=== PATIENT | male | born 1935 | race Caucasian/White ===

== ENCOUNTER 2017-07-14 18:42 | Inpatient (IN) | payer OTHER, MEDICARE ==
[~2017-07-14] VITALS: Ht 167.6 cm; Wt 82.1 kg
--- NOTE | ~2017-07-14 | HC ---
[facility] [place] [address] CONSULTATION Name: MELANIA MANZO Room #: 444-P ADM IN M.R.#: [id number] Admission: 07/14/17 Attend Phys: Uche Garrison Discharge: Date of : 37 Report #: [id number] THIS REPORT FOR: //name// CC: Uche Melchor DATE OF SERVICE: 07/16/2017 HISTORY OF PRESENT ILLNESS: The patient is a 81-year-old male with history of prior CVA with right-sided hemiparetic deficit, who was admitted with increased confusion, slurred speech. He was diagnosed with sepsis, noted to have urinary tract infection, acute renal insufficiency. He is noted to have metabolic encephalopathy. He has acute renal insufficiency superimposed on chronic kidney disease. MRI of the brain showed no acute issues. He does have premorbid Parkinson's disease. He has had a significant decline in his functional level and we are seeing him in rehabilitation medicine consultation. PAST MEDICAL HISTORY: Includes prior CVA with residual right-sided hemiparesis. He was on some thickened liquids at home with his family. He has a history of vertebroplasty in the past, hypertension, cataract, shoulder repair, high cholesterol. ALLERGIES: No known drug allergies. MEDICATIONS: Please see the full medication listing. HABITS: Former tobacco smoker, quit 10 years ago, former history of alcohol use daily, beer intake, quitting 5 years ago. SOCIAL HISTORY: Lives in a house with his . Used a 4-wheeled walker with assist of his and daughter. There is one step in. He did need some help with dressing. REVIEW OF SYSTEMS: Did not offer any current complaints of chest pain, shortness of breath or abdominal discomfort. He does have the prior history of some back pain and has had the recent vertebroplasty as noted above. PHYSICAL EXAMINATION: GENERAL: The patient is a sleepy 81-year-old white male, who easily arouses. Facies revealed some evidence of masked facies. He is a rather slender built. VITAL SIGNS: His temperature is 97.5, pulse 77, respirations 20, blood pressure 145/79. NEUROLOGIC: Functional range of motion of the left upper and left lower extremity with strength, probably a grade 3+ to 4-. He does have some cogwheeling of elbows and wrist on the left. Right upper extremity reveals some paresis, probably a grade 3+ with slowly movement, some rigidity and some [facility] [address] [place] [address] CONSULTATION Name: MELANIA MANZO Room #: 444-P ADM IN ..#: [id number] Admission: 07/14/17 Attend Phys: Uche Garrison Discharge: Date of : 37 Report #: [id number] cogwheeling of wrist and elbow. Lower extremity reveals some weakness as well with paresis, probably a grade 3+. He was quite slowly. He has limited verbalizations. There was no clonus at the ankles. He is mini assist with sit to stand and did ambulate 15 feet, mild assist with a front-wheeled walker. ASSESSMENT: A 81-year-old white male with the following problem list: 1. Late effect cerebrovascular accident with worsening right hemiparesis and dysphagia. 2. Dysphagia, warranting pureed with honey-thickened liquids. 3. Metabolic encephalopathy. 4. Parkinson's disease. 5. Sepsis. 6. Acute renal insufficiency. 7. Hypertension. 8. T4 vertebral fracture, status post kyphoplasty. 9. Hyperlipidemia. PLAN: We are assessing the patient regarding a possible acute in-hospital inpatient rehabilitation stay. We will see how his tolerance for therapy is. We will be glad to follow along with you regarding his rehab therapy needs. By: [id number] Satya Haider MD /OSMAN
--- NOTE | ~2017-07-14 | EKG ---
[address] [address] ELECTROCARDIOGRAM REPORT Name: MELANIA MANZO Room #: 444-P ADM IN .R.#: [id number] Admission: 07/14/17 Attend Phys: Terry Holder DO Discharge: Date of : 37 Report #: [id number] THIS REPORT FOR: //name// [facility] ED Test Date: 2017-07-14 Test Time: 18:53:22 Pat Name: MELANIA ZHENGMIKE Department: Room: [facility] Gender: M Medical Device Assembler: MZOOK : 1935 Requested By: Audrey Harris Order Number: [id number] MD: Christiano Singer Measurements Intervals [place] Rate: 110 P: 48 WV: 154 QRS: 27 QRSD: 77 T: 50 QT: 323 QTc: 438 Interpretive Statements Sinus tachycardia Baseline wander in lead(s) V3 Compared to ECG 03/27/2016 12:18:55 Sinus rhythm no longer present Electronically Signed On 07-14-2017 22:40:04 MARINE DRILLER by Christiano Singer [email or web address] <ELECTRONICALLY SIGNED> By: Christiano Singer MD 07/14/17 2240 [id number] Christiano Singer MD /EPI
[~2017-07-14 18:42] MED LIST: ASPIRIN325; ATORVASTATIN CA40 MG PO; LISINOPRIL2.5 MG PO; PRAVASTATIN SOD10 MG; VICODIN 5-5001 EACH PO
[2017-07-14 18:43] VITALS: BP 173/96
[2017-07-14 18:57] LABS: ABSOLUTE NEUTROPHILS 8.7 thou/uL (1.4-8.2); BASOPHILS 0.6 % (0.0-2.0); EOSINOPHILS 0.1 % (0.0-3.0); HEMATOCRIT 40.5 % (42.0-52.0); HEMOGLOBIN 13.4 gm/dL (14.0-18.0); LYMPHOCYTES 9.3 % (24.0-44.0); MCH 29.2 pg (26.0-34.0); MCHC 33.2 g/dL (28.0-37.0); PLATELET COUNT 291 thou/uL (150-400); RDW 14.3 % (10.5-14.5); WBC 11.2 thou/uL (4.0-11.0)
[2017-07-14 18:58] LABS: MANUAL DIFF NO
[2017-07-14] MEDS ORDERED: TROSPIUM CHLORI20 MG PO (19:09)
[2017-07-14 19:20] LABS: URINE BILIRUBIN NEGATIVE (Negative); URINE BLOOD 3+ (Negative); URINE COLOR YELLOW; URINE GLUCOSE-RANDOM* NEGATIVE (Negative); URINE KETONES NEGATIVE (Negative); URINE PROTEIN (DIPSTICK) 2+ (Negative); URINE UROBILINOGEN 0.2 E.U./dl (0.2-1.0)
[2017-07-14 19:21] LABS: URINE LEUKOCYTES-REFLEX 3+ (Negative)
[2017-07-14 19:22] LABS: CASTS None Seen /LPF (None Seen); SQUAMOUS >10 Many /LPF (0-3); URINE WBC-REFLEX >25 Many /HPF (0-5)
[2017-07-14 19:23] LABS: CRYSTALS None Seen /LPF (None Seen); URINE RBC >20 Many /HPF (0-2)
[2017-07-14 19:53] VITALS: BP 173/96
[2017-07-14 20:05] VITALS: BP 125/72
[2017-07-15] VITALS (7 sets, daily range): BP systolic 129–155; BP diastolic 75–96
[2017-07-15 04:07] LABS: CALCIUM 9.2 mg/dL (8.5-10.1); CREATININE 2.5 mg/dL (0.7-1.3); POTASSIUM 3.7 mmol/L (3.5-5.1)
[2017-07-15 04:40] LABS: HEMATOCRIT 35.2 % (42.0-52.0); HEMOGLOBIN 11.8 gm/dL (14.0-18.0); MCH 29.6 pg (26.0-34.0); MCHC 33.4 g/dL (28.0-37.0); MCV 88.6 fL (80.0-100.0); RBC 3.98 mil/uL (4.50-6.00); RDW 14.1 % (10.5-14.5); WBC 9.5 thou/uL (4.0-11.0)
[2017-07-15 09:09] LABS: GLYCOHEMOGLOBIN (HGB A1C) 6.2 % (4.8-5.6)
[2017-07-15 09:50] LABS: CHOLESTEROL 93 mg/dL (<200); HDL CHOLESTEROL 38 mg/dL (>40); LDL CHOLESTEROL 46 mg/dL (<100); TC:HDL 2.4 Ratio (Not establshd); TRIGLYCERIDE 47 mg/dL (<150); VLDL 9 mg/dL (<40)
[2017-07-16 04:34] VITALS: BP 146/76
[2017-07-16 07:20] VITALS: BP 145/79
[2017-07-16 09:10] LABS: CALCIUM 9.3 mg/dL (8.5-10.1); CREATININE 1.8 mg/dL (0.7-1.3); POTASSIUM 3.7 mmol/L (3.5-5.1)
[2017-07-16 17:11] VITALS: BP 141/72
[2017-07-16 19:49] VITALS: BP 174/84
[2017-07-17 04:48] VITALS: BP 159/76
[2017-07-17 05:38] LABS: CREATININE 1.8 mg/dL (0.7-1.3); POTASSIUM 3.3 mmol/L (3.5-5.1)
[2017-07-17 08:00] VITALS: BP 162/83
[2017-07-17 10:22] VITALS: BP 162/83
[2017-07-17] MEDS ORDERED: HYDROCODON-ACE1 EAC7 PO (11:58)
[2017-07-17] MEDS ORDERED: KEFLEX500 M1 PO (12:00)
== END 2017-07-17 13:09 | disposition home health service (06) | DRG 871 ==
LOC: ER 18:42 → 4S 19:40 → EROBS 19:40 → 4S 20:10 → ENTRNSPT 07-17 12:59 → EDTRNSPTSTS 07-17 13:01 → 4S 07-17 13:09
PROVIDERS: Emergency Medicine; Hospitalist; Nurse Practitioner Acute Care
DX: A41.9 Sepsis, unspecified organism (principal); G93.41 Metabolic encephalopathy; N39.0 Urinary tract infection, site not specified; N17.9 Acute kidney failure, unspecified; I69.351 Hemiplegia and hemiparesis following cerebral infarction affecting right dominant side; E78.00 Pure hypercholesterolemia, unspecified; I10 Essential (primary) hypertension; R13.10 Dysphagia, unspecified; R73.9 Hyperglycemia, unspecified; R41.0 Disorientation, unspecified; G20 Parkinson's disease; Z87.81 Personal history of (healed) traumatic fracture; Z87.891 Personal history of nicotine dependence; Z98.42 Cataract extraction status, left eye; Z98.41 Cataract extraction status, right eye
CPT/HCPCS: 10100

== ENCOUNTER 2019-10-25 19:02 | Emergency (ER) | payer OTHER, MEDICARE ==
[~2019-10-25] VITALS: Ht 167.6 cm; Wt 72.6 kg
[~2019-10-25 19:02] MED LIST changes: +HYDROCODON-ACE1 EAC7 PO; +KEFLEX500 M1 PO; +TROSPIUM CHLORI20 MG PO
[2019-10-25 19:53] LABS: INR 2.8; PROTIME 28.6 Seconds (9.3-11.4)
[2019-10-25] MEDS ORDERED: COUMADIN 2.5MG2.5 M1 PO (20:10)
[2019-10-25] MEDS ORDERED: COUMADIN 2 MG TA2 M1 PO (20:11)
[2019-10-25] MEDS ORDERED: COUMADIN 1MG TAB1 M1 PO (20:12)
[2019-10-25 20:40] VITALS: BP 129/72
== END 2019-10-25 21:09 ==
LOC: ER 19:02
PROVIDERS: Emergency Medicine Emergency Medical Services
DX: S01.01XA Laceration without foreign body of scalp, initial encounter (principal); I10 Essential (primary) hypertension; E78.00 Pure hypercholesterolemia, unspecified; Z86.73 Personal history of transient ischemic attack (TIA), and cerebral infarction without residual deficits; W18.39XA Other fall on same level, initial encounter; Y93.89 Activity, other specified; Y92.098 Other place in other non-institutional residence as the place of occurrence of the external cause; Y99.8 Other external cause status

== ENCOUNTER 2020-01-01 14:01 | Inpatient (IN) | payer OTHER, MEDICARE ==
[~2020-01-01] VITALS: Ht 172.7 cm; Wt 74.8 kg
[~2020-01-01 14:01] MED LIST changes: +COUMADIN 1MG TAB1 M1 PO; +COUMADIN 2 MG TA2 M1 PO; +COUMADIN 2.5MG2.5 M1 PO
[2020-01-01 14:03] VITALS: BP 121/86
[2020-01-01 14:53] LABS: ABSOLUTE NEUTROPHILS 10.5 thou/uL (1.4-8.2); BASOPHILS 0.2 % (0.0-2.0); EOSINOPHILS 0.3 % (0.0-3.0); HEMATOCRIT 41.1 % (42.0-52.0); HEMOGLOBIN 13.7 gm/dL (14.0-18.0); LYMPHOCYTES 10.4 % (24.0-44.0); MCH 30.3 pg (26.0-34.0); MCHC 33.2 g/dL (28.0-37.0); MCV 91.2 fL (80.0-100.0); MONOCYTES 8.8 % (1.0-8.0); POLYS 80.3 % (36.0-66.0); RBC 4.51 mil/uL (4.50-6.00); RDW 14.8 % (10.5-14.5); WBC 14.1 thou/uL (4.0-11.0)
[2020-01-01 15:12] LABS: ALBUMIN 3.3 g/dL (3.4-5.0); ANION GAP 12 mmol/L (7-16); BUN 18 mg/dL (7-18); CALCIUM 8.8 mg/dL (8.5-10.1); CHLORIDE 99 mmol/L (98-107); CO2 23 mmol/L (21-32); CREATININE 1.2 mg/dL (0.7-1.3); GLUCOSE 93 mg/dL (74-106); POTASSIUM 4.2 mmol/L (3.5-5.1); SGOT 34 U/L (15-37); SGPT 30 U/L (30-65); SODIUM 134 mmol/L (136-145); TOTAL BILIRUBIN 1.4 mg/dL (<0.1-1.0); TOTAL PROTEIN 7.4 g/dL (6.4-8.2); TROPONIN-I <0.06 ng/mL (<0.06)
[2020-01-01 15:21] LABS: PLATELET COUNT 162 thou/uL (150-400)
[2020-01-01 15:46] LABS: INR 2.5; PROTIME 25.2 Seconds (9.3-11.4)
[2020-01-01 16:49] LABS: URINE BILIRUBIN NEGATIVE (Negative); URINE BLOOD 3+ (Negative); URINE CLARITY SL CLOUDY; URINE COLOR YELLOW; URINE GLUCOSE-RANDOM* NEGATIVE (Negative); URINE KETONES 1+ (Negative); URINE NITRITE-REFLEX NEGATIVE (Negative); URINE PROTEIN (DIPSTICK) 1+ (Negative)
[2020-01-01 16:50] LABS: URINE LEUKOCYTES-REFLEX 3+ (Negative)
[2020-01-01 16:58] LABS: CASTS None Seen /LPF (None Seen); CRYSTALS None Seen /LPF (None Seen); SQUAMOUS None Seen /LPF (0-3); URINE RBC >20 Many /HPF (0-2)
[2020-01-01 16:59] LABS: BACTERIA-REFLEX 1-9 Few /HPF (None Seen)
[2020-01-01 19:03] VITALS: BP 134/72
[2020-01-01 20:15] VITALS: BP 154/73
[2020-01-01 20:56] VITALS: BP 134/80
[2020-01-02 00:33] VITALS: BP 138/61
--- NOTE | 2020-01-02 01:32 | NUR ---
RECEIVED REPORT FROM JOSE ED RN.PATIENT ARRIVED TO ROOM 352 AROUND 1999.PATIENT ALERT,NONVERBAL,ABLE TO GET HOLD OF HIS AND SHE WAS ABLE TO PROVIDE SOME INFORMATION.REPOSITIONED PATIENT Q2 HOURS AND NEEDED. SUPRAPUBIC CATH INTACT.NO SIGNS OF PAIN OR DISCOMFORT.POC CONTINUED.
[2020-01-02 04:15] VITALS: BP 115/47
[2020-01-02 06:16] LABS: HEMOGLOBIN 12.4 gm/dL (14.0-18.0); MCH 30.2 pg (26.0-34.0); MCHC 33.4 g/dL (28.0-37.0); MCV 90.5 fL (80.0-100.0); RBC 4.09 mil/uL (4.50-6.00); RDW 14.7 % (10.5-14.5); WBC 10.7 thou/uL (4.0-11.0)
[2020-01-02 06:24] LABS: CALCIUM 8.5 mg/dL (8.5-10.1); POTASSIUM 3.5 mmol/L (3.5-5.1)
[2020-01-02 06:28] LABS: INR 2.5; PROTIME 26.1 Seconds (9.3-11.4)
[2020-01-02 09:12] VITALS: BP 120/61
--- NOTE | 2020-01-02 12:03 | NUR ---
INITIAL ASSESSMENT: Reviewed chart and spoke with nursing and attending physician. Pt in Enhanced Isolation. Pt's COVID-19 test is negative. Pt will be transferred from to another unit when a bed is available. Pt is nonverbal. ANDI spoke with pt's , Colette, via phone. Introduced role of ANDI. Pt requires total care at home. Pt has a w/c, hospital bed and lift chair at home. Pt's home and bathroom is handicapped accessible. Pt is currently on service with [facility] for monthly catheter care and INR checks. Pt's PCP is Dr. Damon Walter at [facility] on the [place]. Pt's states that plan is for pt to return home and resume services. ANDI faxed clinical info to Brittany for review and spoke with Avinash in intake. Pt's INR results will be forwarded to the [facility] protime clinic by Brittany . ANDI is following to assist as needed with discharge planning.
--- NOTE | 2020-01-02 12:43 | NUR ---
PT CARE ASSUMED AT 0700. AWAKE AND ALERT. BEDBOUND WITH HISTORY OF DEMENTIA. Q2 TURNS. DNR. SUPRAPUBIC CATHETER CLEANED AND CRUST AND PUSS REMOVED FROM SKIN AND SUROUNDING CATHETER AREA. MD NOTIFIED. PT COUGHES WHEN DRINKING WATER SPEECH EVALUATION ORDERED. NECTAR THICK FLUIDS GIVEN UNTIL EVALUATION TO PREVENT ASPIRATION. PT WILL RESPOND WITH SHORT ANSWERS WHEN SHORT DIRECT QUESTIONS ARE ASKED. PER ARIA ROD (INFECTION CONTROLL) AND DR. CLINTON PT IS OK TO BE TAKEN OFF OF ISOLATION AND TRANSFERRED TO A [facility] FLOOR. BOTTOM AN DBACK ARE RED BUT NOT OPEN. TOTAL BEDBATH AND ORAL CARE GIVEN. ON ROOM AIR. FALL PROTOCOLL IN PLACE. PT SCREEN POSITIVE ON THE SEPSIS PROTOCOL, DR. CLINTON INFORMED. IV PATENT WITH NO REDNESS OR EDEMA. FLUIDS AND ANTIBIOTICS INFUSING. WRAPPED WITH COBAN. CALL LIGHT IN REACH. WILL CONTINUE TO MONITOR.
[2020-01-02 19:25] VITALS: BP 137/62
[2020-01-02 19:30] VITALS: BP 137/62
--- NOTE | 2020-01-02 22:11 | NUR ---
PT WAS TRANSFERRED FROM AT APPROX 1999 IN A STABLE CONDITION.PT REPOSITIONED Q2 WHILE IN BED.PT'S NIC NOTIFIED OF PT'S MOVE,UPDATED HER WITH HIS NEW ROOM NUMBER.PT'S SUPRAPUBIC CATH INTACT WITH DARK YELLOW URINE NOTED IN THE BAG.PT RESTING ON HIS BED AT THIS TIME.FEET ELEVATED WITH A PILLOW.PT RESTING COMFORTABLY ON HIS BED AT THIS TIME.IVF INFUSING OREDERED.FALL PRECAUTIONS IN PLACE.CALL LIGHT WITHIN REACH.
--- NOTE | 2020-01-02 22:26 | NUR ---
PATIENT IS CONFUSED TO PLACE AND TRIME. NEEDS HELP IN FEEDING. SUPERPUBIC CATH CHANGE PRIOR TO TRANSFER TO 461. REPORT GIVEN TO HIS HS RN. ON ROOM AIR.INCONT OF BLADDER AND BOWEL. DENIES ANY PAIN. TRANSFERED OFF OF FLOOR PER BED. WAS BATHED TODAY.
[2020-01-03 04:33] VITALS: BP 146/56
[2020-01-03 05:39] LABS: HEMATOCRIT 34.7 % (42.0-52.0); HEMOGLOBIN 11.6 gm/dL (14.0-18.0); MCH 30.3 pg (26.0-34.0); MCHC 33.4 g/dL (28.0-37.0); MCV 90.6 fL (80.0-100.0); RBC 3.83 mil/uL (4.50-6.00); RDW 14.6 % (10.5-14.5); WBC 8.1 thou/uL (4.0-11.0)
[2020-01-03 05:42] LABS: INR 2.6; PROTIME 26.8 Seconds (9.3-11.4)
[2020-01-03 05:50] LABS: CALCIUM 8.3 mg/dL (8.5-10.1); CREATININE 1.1 mg/dL (0.7-1.3); POTASSIUM 3.5 mmol/L (3.5-5.1)
[2020-01-03 07:24] VITALS: BP 134/66
--- NOTE | 2020-01-03 07:56 | EKG ---
[facility] [place] [address] ELECTROCARDIOGRAM REPORT Name: MELANIA CANCINO Room #: 461-P ADM IN M.R.#: [id number] Admission: 01/01/20 Attend Phys: Jermain Aldrich MD Discharge: Date of : 37 Report #: [id number] THIS REPORT FOR: cc: FAM - Family physician unknown FAM - Family physician unknown Virgilio Hensley MD [facility] ~ THIS REPORT FOR: //name// [facility] ED Test Date: 2020-01-01 Test Time: 15:41:42 Pat Name: MELANIA CANCINO Department: Room: 46 Gender: M Button Buttonhole Marker: CHRIS : 1935 Requested By: Alexandre Mooney Order Number: [id number] MD: Virgilio Hensley Measurements Intervals [place] Rate: 87 P: 46 MT: 175 QRS: -9 QRSD: 95 T: 34 QT: 395 QTc: 476 Interpretive Statements Sinus rhythm Abnormal R-wave progression, early transition Borderline prolonged QT interval Baseline wander in lead(s) V1 Compared to ECG 07/14/2017 18:53:22 Sinus tachycardia no longer present Electronically Signed On 01-03-2020 7:54:52 CDT by Virgilio Hensley [email or web address] <ELECTRONICALLY SIGNED> By: Virgilio Hensley MD, FAC 01/03/20 0754 1541 1541 Virgilio Hensley MD, FAC /EPI
--- NOTE | 2020-01-03 09:42 | NUR ---
Nutrition: pt admitted with AMS, fever, UTI. PMH: dementia, CVA, HLD, HTN, Parkinsons. Confused. Notified of low roslyn score. Noted pt is bedbound but no wounds are documented. Mild to moderate [facility] Honey thick liquids diet followed by ST. Requires feeding assist and so far has been eating fairly well, 60-70% of meals. Magic cup ordered. Unsure of accuracy of weights. 160 and 180 both seen per hx. 165# current. Follow trends but place as low risk due to interventions in place.
--- NOTE | 2020-01-03 12:54 | NUR ---
Received awake on bed. Due medications given as prescribed, medications crushed and given with apple sauce as per ST. On room air. On heart healthy diet, mechanically chopped, honey thick fluids- pt assisted and encouraged in eating and drinking. Vital signs stable. In continent of bowel and bladder- with suprepubic catheter in place- output measured and recorded accordingly; pt checked frequently and changed as needed. With redness on his buttocks and back- turned frequently. Assisted in ADLs. Assessed by PT and OT today. With NS at 75cc/hr, infusing well at L FA. Falls bundle in place. To continue monitoring patient.
[2020-01-03 16:34] VITALS: BP 97/74
[2020-01-03 16:42] VITALS: BP 131/97
[2020-01-03 19:07] VITALS: BP 131/58
[2020-01-04 05:55] LABS: INR 2.8; PROTIME 28.9 Seconds (9.3-11.4)
[2020-01-04 06:03] LABS: CALCIUM 8.6 mg/dL (8.5-10.1); POTASSIUM 3.2 mmol/L (3.5-5.1)
[2020-01-04 06:04] LABS: HEMATOCRIT 36.7 % (42.0-52.0); HEMOGLOBIN 12.2 gm/dL (14.0-18.0); MCHC 33.1 g/dL (28.0-37.0); MCV 90.7 fL (80.0-100.0); RBC 4.05 mil/uL (4.50-6.00); RDW 14.5 % (10.5-14.5); WBC 6.1 thou/uL (4.0-11.0)
--- NOTE | 2020-01-04 06:18 | NUR ---
ASSUMED PT CARE AROUND 1900. AXOX1. VSS. AROUND 0500, NOTED PT'S REMOVED IV. REINSERTED AND PROTECTIVE WRAP APPLIED FOR SECURITY OF THE IV. TOLERATED PROCEDURE WELL. VSS. SUPRAPUBIC CATHETER INTACT. NO S/S ACUTE DISTRESS NOTED OR REPORTED AT THIS TIME. WILL CONT TO MONITOR FOR ANY CHANGES IN CONDITION.
[2020-01-04 09:00] VITALS: BP 107/60; BP 150/87
--- NOTE | 2020-01-04 14:17 | NUR ---
CARE TEAM INDICATED THAT PT MIGHT BE MEDICALLY STABLE TO DC HOME TOMORROW. CM CALLED AND SPOKE WITH PT'S AND WENT OVER HOW PT WAS DOING WITH PT AND THE LEVEL OF ASSIST PT WILL LIKELY NEED UPON DC. PT NOTES INDICATED USE OF LIFT DEVICE, PT'S INDICATED THEY DON'T HAVE A LIFY DEVICE FOR TRANSFERS THAT THEY HAVE A LIFT CHAIR/RECLINER FOR USE. SPOUSE STATED THAT SHE HAD ASSISTED [facility] PHYSICAL LIFT FROM SITTING TO STANDING. SHE INDICATED THAT FROM SOUND OF THERAPY NOTES SHE WOULD BE ABLE TO CARE FOR PT UPON HIS ANTICPATED RETURN HOME TOMORROW. SHE INDICATED SHE WOULD [facility] TRANSPORT ONCE READY. UPDATED SENT TO [facility].
--- NOTE | 2020-01-04 18:48 | NUR ---
ASSUMED CARE OF PT AT 0700. PT IS ALERT AND ORIENTED TO PERSON ONLY, VITAL SIGNS ARE STABLE.
[2020-01-04 20:18] VITALS: BP 167/76
[2020-01-05 03:59] VITALS: BP 128/69
[2020-01-05 06:28] LABS: HEMATOCRIT 37.1 % (42.0-52.0); HEMOGLOBIN 12.3 gm/dL (14.0-18.0); MCH 30.1 pg (26.0-34.0); MCHC 33.2 g/dL (28.0-37.0); MCV 90.4 fL (80.0-100.0); RBC 4.1 mil/uL (4.50-6.00); RDW 14.7 % (10.5-14.5); WBC 6.3 thou/uL (4.0-11.0)
[2020-01-05 06:40] LABS: CALCIUM 8.5 mg/dL (8.5-10.1); CREATININE 0.9 mg/dL (0.7-1.3); POTASSIUM 3.1 mmol/L (3.5-5.1)
[2020-01-05 08:00] VITALS: BP 131/60
--- NOTE | 2020-01-05 10:21 | NUR ---
ASSUMED CARE AT 0700. PT IS AWAKE, EATING BREAKFAST. NO COMPLAINTS WHEN ASKED ABOUT PAIN. VSSA/RA. TOLERATING HIS MECHANICAL SOFT/ HONEY THICK LIQUID DIET. SUPRAPUBIC CATHETER DRAINING CLEAR YELLOW URINE. PIV INFUSING WITHOUT COMPLICATIONS. WILL CONTINUE TO MONITOR
[2020-01-05 10:39] VITALS: BP 131/60
[2020-01-05] MEDS ORDERED: LEVAQUIN 500 M500 M3 PO (12:44)
--- NOTE | 2020-01-05 15:06 | NUR ---
PT DISCHARGED HOME AT THIS TIME. PT HERE TO PICK HIM UP. PT TRANSPORTED VIA WHEELCHAIR IN GOOD CONDITION. PT BELONGINGS WITH PT, HOME MEDICATIONS AND ID. EDWARDS IN PLACE. PIV REMOVED WITHOUT COMPLICATIONS.
--- NOTE | 2020-01-05 15:17 | NUR ---
CARE TEAM INDICATED THAT PT IS MEDICALLY STABLE TO DC HOME WITH SPOUSE AND HH RESUMPTION THIS DAY. ORDERS WERE SENT TO [facility] HH. PT'S SPOUSE TO [facility] TRANSPORT HOME. PT HAS ALL NEEDED DME. NO OTHER CM INTERVENTION INDICATED. CASE CLOSED.
--- NOTE | 2020-01-05 15:43 | NUR ---
FAXED DC ORDERS/SUMMARY TO [facility] SPOKE WITH LORY IN INTAKE SHE RECEIVED ORDERS AND WILL NOTIFY PT TIME OF VISITS.
== END 2020-01-05 15:00 | disposition home health service (06) | DRG 871 ==
LOC: ER 14:01 → 3W 17:32 → EROBS 17:32 → 4W 17:32 → 3W 19:56 → 4W 01-02 20:19
PROVIDERS: Hospitalist; Physician Assistant; ADMIT Hospitalist
DX: A41.9 Sepsis, unspecified organism (principal); G93.41 Metabolic encephalopathy; N39.0 Urinary tract infection, site not specified; I69.354 Hemiplegia and hemiparesis following cerebral infarction affecting left non-dominant side; E78.00 Pure hypercholesterolemia, unspecified; I10 Essential (primary) hypertension; F03.90 Unspecified dementia, unspecified severity, without behavioral disturbance, psychotic disturbance, mood disturbance, and anxiety; G20 Parkinson's disease; F02.80 Dementia in other diseases classified elsewhere, unspecified severity, without behavioral disturbance, psychotic disturbance, mood disturbance, and anxiety; Z20.828 Contact with and (suspected) exposure to other viral communicable diseases; E78.5 Hyperlipidemia, unspecified; E87.6 Hypokalemia; R13.10 Dysphagia, unspecified; Z79.2 Long term (current) use of antibiotics; Z79.01 Long term (current) use of anticoagulants; Z79.899 Other long term (current) drug therapy; Z87.891 Personal history of nicotine dependence
CPT/HCPCS: 10040; 10080; 10879

== ENCOUNTER 2020-01-15 20:19 | Emergency (ER) | payer OTHER, MEDICARE ==
[~2020-01-15] VITALS: Ht 167.6 cm; Wt 77.1 kg
[~2020-01-15 20:19] MED LIST changes: +LEVAQUIN 500 M500 M3 PO
[2020-01-15 21:01] LABS: ABSOLUTE NEUTROPHILS 3.6 thou/uL (1.4-8.2); BASOPHILS 1.2 % (0.0-2.0); EOSINOPHILS 3.4 % (0.0-3.0); HEMATOCRIT 40.5 % (42.0-52.0); HEMOGLOBIN 13.3 gm/dL (14.0-18.0); LYMPHOCYTES 30.7 % (24.0-44.0); MCH 29.8 pg (26.0-34.0); MCHC 32.8 g/dL (28.0-37.0); MCV 90.9 fL (80.0-100.0); MONOCYTES 9.4 % (1.0-8.0); PLATELET COUNT 234 thou/uL (150-400); POLYS 55.3 % (36.0-66.0); RBC 4.46 mil/uL (4.50-6.00); RDW 14.9 % (10.5-14.5); WBC 6.5 thou/uL (4.0-11.0)
[2020-01-15 21:14] LABS: URINE BILIRUBIN NEGATIVE (Negative); URINE BLOOD TRACE (Negative); URINE CLARITY CLEAR; URINE COLOR YELLOW; URINE GLUCOSE-RANDOM* NEGATIVE (Negative); URINE KETONES NEGATIVE (Negative); URINE LEUKOCYTES-REFLEX 1+ (Negative); URINE NITRITE-REFLEX NEGATIVE (Negative); URINE PROTEIN (DIPSTICK) NEGATIVE (Negative); URINE SPECIFIC GRAVITY 1.015 (1.005-1.035); URINE UROBILINOGEN 0.2 E.U./dl (0.2-1.0)
[2020-01-15 21:22] LABS: HYALINE CASTS 0-3 Few /LPF (None Seen); URINE WBC-REFLEX 6-15 Few /HPF (0-5)
[2020-01-15 21:30] LABS: YEAST-REFLEX Present (None Seen)
[2020-01-15 21:31] LABS: CALCIUM OXALATE 0-3 Few /LPF (None Seen); SQUAMOUS 0-3 Few /LPF (0-3); URINE RBC 3-10 Few /HPF (0-2)
[2020-01-15 21:32] LABS: BACTERIA-REFLEX None Seen /HPF (None Seen)
[2020-01-15 21:48] LABS: ALBUMIN 3.1 g/dL (3.4-5.0); ANION GAP 10 mmol/L (7-16); BUN 23 mg/dL (7-18); CALCIUM 8.7 mg/dL (8.5-10.1); CHLORIDE 104 mmol/L (98-107); CO2 28 mmol/L (21-32); CREATININE 1.3 mg/dL (0.7-1.3); GLUCOSE 102 mg/dL (74-106); SGOT 35 U/L (15-37); SGPT 21 U/L (30-65); SODIUM 142 mmol/L (136-145); TOTAL BILIRUBIN 0.6 mg/dL (<0.1-1.0); TOTAL PROTEIN 7.6 g/dL (6.4-8.2); TROPONIN-I <0.06 ng/mL (<0.06)
[2020-01-15 21:50] LABS: POTASSIUM 4.3 mmol/L (3.5-5.1)
[2020-01-15 22:32] VITALS: BP 129/50
--- NOTE | 2020-01-16 08:11 | EKG ---
[facility] [place] [address] ELECTROCARDIOGRAM REPORT Name: MELANIA MANZO Room #: DEP [facility]#: [id number] Admission: 01/15/20 Attend Phys: Discharge: 01/15/20 Date of : 37 Report #: [id number] THIS REPORT FOR: cc: FAM - Family physician unknown FAM - Family physician unknown Virgilio Hensley MD [facility] THIS REPORT FOR: //name// [facility] ED Test Date: 2020-01-15 Test Time: 21:07:21 Pat Name: MELANIA MANZO Department: Room: Gender: Director Of Gift Planning: [facility] : 1935 Requested By: Jona Stevens Order Number: [id number] MD: Virgilio Hensley Measurements Intervals [place] Rate: 56 P: 38 AL: 166 QRS: 18 QRSD: 92 T: 41 QT: 442 QTc: 427 Interpretive Statements Sinus bradycardia Abnormal R-wave progression, early transition Compared to ECG 01/01/2020 15:41:42 Heart rate has slowed Electronically Signed On 01-16-2020 8:09:28 CDT by Virgilio Henlsey [email or web address] <ELECTRONICALLY SIGNED> By: Virgilio Hensley MD, [facility] 01/16/20 0809 06 06 Virgilio Hensley MD, [facility] /EPI
== END 2020-01-15 22:33 | disposition home or self-care (01) ==
LOC: ER 20:19
PROVIDERS: Emergency Medicine
DX: R41.0 Disorientation, unspecified (principal); R53.1 Weakness; R53.83 Other fatigue; E78.00 Pure hypercholesterolemia, unspecified; G20 Parkinson's disease; Z79.899 Other long term (current) drug therapy; Z79.01 Long term (current) use of anticoagulants; Z87.891 Personal history of nicotine dependence; Z86.73 Personal history of transient ischemic attack (TIA), and cerebral infarction without residual deficits

== ENCOUNTER 2020-07-05 13:49 | Inpatient (IN) | payer OTHER, MEDICARE ==
[~2020-07-05] VITALS: Ht 167.6 cm; Wt 74.8 kg
[2020-07-05 13:51] VITALS: BP 161/85
[2020-07-05] MEDS ORDERED: JANTOVEN1 MG PO (14:17)
[2020-07-05] MEDS ORDERED: JANTOVEN2 MG PO (14:17)
[2020-07-05 14:32] LABS: URINE BILIRUBIN NEGATIVE (Negative); URINE BLOOD NEGATIVE (Negative); URINE CLARITY CLEAR; URINE COLOR YELLOW; URINE GLUCOSE-RANDOM* NEGATIVE (Negative); URINE KETONES NEGATIVE (Negative); URINE PROTEIN (DIPSTICK) TRACE (Negative); URINE UROBILINOGEN 0.2 E.U./dl (0.2-1.0)
[2020-07-05 14:34] LABS: URINE LEUKOCYTES-REFLEX 2+ (Negative); URINE NITRITE-REFLEX POSITIVE (Negative)
[2020-07-05 14:39] LABS: CALCIUM OXALATE 0-3 Few /LPF (None Seen); SQUAMOUS 0-3 Few /LPF (0-3)
[2020-07-05 14:40] LABS: URINE RBC 3-10 Few /HPF (0-2); WBC CLUMPS Few (None Seen)
[2020-07-05 14:42] LABS: CASTS None Seen /LPF (None Seen)
[2020-07-05 15:25] LABS: ABSOLUTE NEUTROPHILS 3.3 thou/uL (1.4-8.2); BASOPHILS 0.8 % (0.0-2.0); EOSINOPHILS 3.6 % (0.0-3.0); HEMATOCRIT 43.2 % (42.0-52.0); HEMOGLOBIN 14.1 gm/dL (14.0-18.0); LYMPHOCYTES 25.8 % (24.0-44.0); MCHC 32.7 g/dL (28.0-37.0); MCV 91.7 fL (80.0-100.0); MONOCYTES 9.9 % (1.0-8.0); PLATELET COUNT 188 thou/uL (150-400); POLYS 59.9 % (36.0-66.0); RBC 4.72 mil/uL (4.50-6.00); RDW 14.6 % (10.5-14.5); WBC 5.6 thou/uL (4.0-11.0)
[2020-07-05 15:32] LABS: CREATININE 1.2 mg/dL (0.7-1.3); POTASSIUM 5.1 mmol/L (3.5-5.1)
[2020-07-05 17:38] LABS: INR 2.5; PROTIME 25.8 Seconds (9.3-11.4)
[2020-07-05 17:46] VITALS: BP 134/50
[2020-07-05 17:55] VITALS: BP 131/64
--- NOTE | 2020-07-05 18:15 | NUR ---
RECIEVED REPORT FROM ED NURSE AT 1800; PATIENT ARRIVED TO UNIT RM. 462 NOW. VSS. YELLOW SOCKS APPLIED. CALL LIGHT WITHIN REACH; BED ALARM ON. PATIENT IS A&OX1...WILL CONTINUE TO MONITOR AND ENDORSE REPORT TO NOC. RN.
[2020-07-05 19:01] LABS: FOLIC ACID 19.5 ng/mL (8.6-58.9)
--- NOTE | 2020-07-05 22:52 | NUR ---
PT ADMITTED TO THE UNIT AT APPROXIMATELY 1800 WITH DAY SHIFT RN. PT IS A/O X1. UNABLE TO COMPLETE FULL ADMISSION HX. CALLED NUMEROUS TIMES AND WAS UNABLE TO GET THROUGH DUE TO A BUSY SIGNAL. PT IS LYING IN HIS BED AND APPEARS TO BE SLEEPING. ABX STARTED. PT IS ON ROOM AIR. EXPERIENCES A LOOSE COUGH AND SLIGHT DROOLING TO THE RIGHT SIDE OF HIS MOUTH. DENIES ANY C/O PAIN OR DISCOMFORT. SUPRAPUBIC CATH IN PLACE AND DRAINING DARK YELLOW URINE. FALL PRECAUTIONS ARE IN PLACE, CALL LIGHT IS WITHIN REACH. WILL CONTINUE TO MONITOR.
[2020-07-05] MEDS ORDERED: TRAZODONE HCL50 MG PO (22:59)
[2020-07-06 06:05] LABS: HEMATOCRIT 38.1 % (42.0-52.0); HEMOGLOBIN 12.7 gm/dL (14.0-18.0); MCH 30.2 pg (26.0-34.0); MCHC 33.4 g/dL (28.0-37.0); MCV 90.5 fL (80.0-100.0); PLATELET COUNT 192 thou/uL (150-400); RBC 4.21 mil/uL (4.50-6.00); RDW 14.2 % (10.5-14.5); WBC 4.9 thou/uL (4.0-11.0)
[2020-07-06 06:17] LABS: CREATININE 1.2 mg/dL (0.7-1.3); MAGNESIUM 1.9 mg/dL (1.8-2.4)
[2020-07-06 06:23] LABS: POTASSIUM 3.6 mmol/L (3.5-5.1)
[2020-07-06 07:15] LABS: ABSOLUTE NEUTROPHILS 3.2 thou/uL (1.4-8.2); PLATELET ESTIMATE NORMAL
[2020-07-06 07:45] VITALS: BP 93/47
--- NOTE | 2020-07-06 10:33 | NUR ---
Nutrition: screen for note of pressure wound-not yet documented. Wt stable from last admit in December. No albumin; hx of dementia, CVA, Parkinson's, HTN. Probiotic, statin and other meds reivwed. Per nsg report of breakfast-pt had eaten most of eggs and applesauce and was then fed by OVERNIGHT BABYSITTER. Pt with [facility] alt diet and thickened liquids. Assess pt at mild nutrition risk based on info available at this time. Will add Magic Cup daily for added kcal/protein and RD to follow up and assess for further needs by 07/11.
[2020-07-06 13:22] VITALS: BP 122/68
--- NOTE | 2020-07-06 14:35 | NUR ---
PT ADMITTED RELATED TO UTI, AMS, FAILURE OF OUTPATIENT TREATMENT. CM REVIEWED CHART AND SPOKE WITH CARE TEAM. CM CALLED AND SPOKE WITH PT'S SPOUSE NIC. SHE INDICATED THAT SHE AND PT RESIDE IN A HOUSE WITH 3 STEPS TO ENTER AND NO STEPS HE USES INSIDE. SHE INDICATED THAT PT HAS A HOSPITAL BED, WC, LIFT CHAIR, 4WW. PT'S SPOUSE ASSISTS PT WITH TRANSFERS AND ADLS IN THE HOME. PT HAD BEEN ON SERVICE WITH [facility]. THEY MANAGE PT'S SUPRAPUBIC CATHETER AND HIS INR. PT'S PCP IS DR. ADOLFO LOPEZ. PT'S SPOUSE INDICATED THAT SHE PREFERS PT TO RETURN HOME WITH [facility]UMPTION OF [facility] ONCE MEDICALLY STABLE. SHE WILL PROVIDE TRANSPORT HOME UPON DISCHARGE. CARE TEAM INDICATED THAT PT COULD POSSIBLE BE MEDICALLY STABLE TO DC OVER THE WEEKEND. SHOULD PT ME READY TO DC OVER WEEKEND FAX ORDERS TO [facility]. [facility] P: F:
[2020-07-06 14:43] VITALS: BP 122/68
[2020-07-06 15:38] VITALS: BP 93/47
--- NOTE | 2020-07-06 19:03 | NUR ---
Alert and orientated X3. Speaks in low voice, difficult to understand at times. Follows commands. Breath sounds clear and slightly diminished. Reg HR auscultated. Color pink with brisk capillary refill and palpable peripheral pulses. Yellow urine per urostomy, stoma site cleaned, slightly reddened. Active bowel sounds over soft, rounded abdomen, small brown soft stool. Buttocks reddened and with some scratch arceo and circular spots. Cleaned and fungal barrier cream applied X 2. Much improved by end of shift. Required feeding today but had good appetite. Turning q 2 hrs, heel protectors applied. IV infusing at 25 cc/hr per R arm, site soft and flat.
[2020-07-06 20:00] VITALS: BP 126/79
--- NOTE | 2020-07-07 04:02 | NUR ---
ASSUMED CARE OF PT AT 1900. PT IS A/O X2 WITH FORGETFULLNESS. PT IS ON BEDREST AND DOES REQUIRE Q2 HR REPOSITIONING. PT DENIES ANY PAIN OR DISCOMFORT. VSS. CREAM APPLIED TO BUTTOCKS. FALL PRECAUTIONS ARE IN PLACE, CALL LIGHT IS WITHIN REACH. WILL CONTINUE TO MONITOR.
[2020-07-07 05:44] LABS: INR 2.8; PROTIME 28.6 Seconds (9.3-11.4)
[2020-07-07 08:35] VITALS: BP 119/59
--- NOTE | 2020-07-07 10:40 | NUR ---
Received awake on bed. Due medications given as prescribed, crushed and mixed with pudding. On MS, not on telemetry; no complains and signs of chest pain, crushing sensation and heaviness. On room air. Vital signs stable. On pureed diet, honey thick liquids- assisted and encouraged in eating and drinking; on swallowing precautions; no nausea, no vomiting and no abdominal pain noted. With suprapubic catheter in place- output measured and recorded accordingly, draining well. With SL at L wrist- wrapped in coban; on IV antibiotics. Assisted in ADLs. Falls bundle in place. Turned every 2 hours. To continue monitoring patient.
[2020-07-07 16:29] VITALS: BP 100/52
[2020-07-07 19:50] VITALS: BP 114/56
--- NOTE | 2020-07-08 03:17 | NUR ---
ASSUMED CARE OF PT AT 1900. PT IS A/O X2 AND IS CURRENTLY ON BEDREST AND REQUIRES FREQUENT REPOSITIONING. DENIES ANY C/O PAIN OR DISCOMFORT. VSS. ANTIFUNGAL CREAM APPLIED TO BOTTOM. SCD'S IN PLACE. FALL PRECAUTIONS ARE IN PLACE, CALL LIGHT IS WITHIN REACH. SUPRAPUBIC CATHETER IN PLACE AND DRAINING DARK YELLOW URINE. WILL CONTINUE TO MONITOR.
[2020-07-08 05:47] LABS: INR 2.7; PROTIME 27.4 Seconds (9.3-11.4)
[2020-07-08 08:39] VITALS: BP 135/60
--- NOTE | 2020-07-08 09:53 | NUR ---
Received awake on bed. Due medications given as prescribed, crushed and mixed with pudding. On MS, not on telemetry; no complains and signs of chest pain, crushing sensation and heaviness. On room air. Vital signs stable. On pureed + thickened liquid diet- assisted in eating and drinking; tolerating well; no nausea, no vomiting and no abdominal pain noted. With suprapubic catheter in place- draining well; output measured and recorded accordingly. With SL at L wrist- intact, wrapped in coban. Turned on his sides regularly. With redness on his buttocks, cream applied as ordered. To continue monitoring patient. Pt seen and examined by Dr Chu this AM, to continue IV antibiotics, for urinalysis- to obtain specimen. No complains of pain made during assessment.
[2020-07-08 13:53] LABS: URINE BILIRUBIN NEGATIVE (Negative); URINE BLOOD 3+ (Negative); URINE CLARITY CLEAR; URINE COLOR YELLOW; URINE GLUCOSE-RANDOM* NEGATIVE (Negative); URINE KETONES NEGATIVE (Negative); URINE LEUKOCYTES-REFLEX 1+ (Negative); URINE NITRITE-REFLEX NEGATIVE (Negative); URINE PROTEIN (DIPSTICK) TRACE (Negative)
[2020-07-08 14:14] LABS: CASTS None Seen /LPF (None Seen); SQUAMOUS 0-3 Few /LPF (0-3)
[2020-07-08 14:15] LABS: BACTERIA-REFLEX 1-9 Few /HPF (None Seen); CALCIUM OXALATE 0-3 Few /LPF (None Seen); URINE WBC-REFLEX 0-5 Rare /HPF (0-5)
[2020-07-08 16:54] VITALS: BP 137/69
[2020-07-08 20:00] VITALS: BP 113/59
[2020-07-09 06:04] LABS: HEMATOCRIT 38.6 % (42.0-52.0); HEMOGLOBIN 12.9 gm/dL (14.0-18.0); MCH 30.6 pg (26.0-34.0); MCHC 33.3 g/dL (28.0-37.0); RBC 4.2 mil/uL (4.50-6.00); RDW 14.7 % (10.5-14.5); WBC 6.9 thou/uL (4.0-11.0)
[2020-07-09 06:10] LABS: INR 2.6; PROTIME 26.6 Seconds (9.3-11.4)
[2020-07-09 06:15] LABS: CALCIUM 8.5 mg/dL (8.5-10.1); CREATININE 1.4 mg/dL (0.7-1.3); POTASSIUM 3.5 mmol/L (3.5-5.1)
--- NOTE | 2020-07-09 06:37 | NUR ---
ASSUMED PT'S CARE @ 1900. PT ALERT AND ORIENTED TO SELF. DOES NOT VERBALIZE MUCH. TOOK MEDS PER EMAR. ORAL CARE PERFORMED THIS SHIFT. PT SLEPT OFF AND ON. SUPRAPUBIC CATH FOR VOIDING. FALL PRECAUTION IN PLACE. ANTICIPATED DC TO HOME W/HH TODAY. FALL PRECAUTIONS IN PLACE. WILL CONTINUE TO MONITOR.
[2020-07-09 07:45] VITALS: BP 122/66
--- NOTE | 2020-07-09 17:50 | NUR ---
ASSUMED PATIENT CARE AT SHIFT CHANGE. ASSESSMENT CHARTED. MEDS GIVEN PER MAR. VSS. PATIENT IS RESPONSIVE TO TOUCH AND WHEN CALLED BY NAME; AT TIMES SAYS "YES" OR "NO". PATIENT IS VERY DROWSY TODAY. THIS DROWSINESS LASTED THROUGHOUT DAY. PROVIDER WAS NOTIFIED AND HS SLEEPING PILL WAS CHNAGED TO PRN NEEDED. PATIENT GETS FED AND EATS WITH HIS EYES CLOSED. ST FED THIS PATIENT TODAY FOR LUNCH AND CONTINUES TO RECOMMEND SWALLOWING PRECAUTIONS. ABX INFUSING TODAY ON L WRIST W NO ISSUES. SUPRAPUBIC CATHETER INTACT WITH DARK URINE. PATIENT WAS REPOSITIONED FREQUENTLY D/T IMMOBILITY. PATIENT DENIED PAIN AND DID NOT APPEAR IN ANY APPARENT DISTRESS WHEN REPOSITIONED OR TOUCHED. SPOUSE CURRENTLY AT BEDSIDE. FALL PRECAUTIONS IN PLACE. WILL CONTINUE TO MONITOR
[2020-07-09 19:20] VITALS: BP 114/59
--- NOTE | 2020-07-10 07:38 | NUR ---
Assumed pt care at 1900. A/OX2-3, quiet spoken. VSS.Denies pain on assessment. Supra-pubic cath in place with yellow urine noted. Repositioned every 2 hrs w/o problems. On puree/honey thick liquids. Fall precautions in place.
[2020-07-10 08:06] VITALS: BP 107/44
[2020-07-10 10:18] VITALS: BP 122/68
--- NOTE | 2020-07-10 11:22 | NUR ---
I AGREE WITH NURSING ASSESSMENT AND NURSING NOTE DONE BY KAMLESH/DETENTION OFFICER.
--- NOTE | 2020-07-10 13:08 | NUR ---
Received awake on bed. Due medications given as prescribed, able to swallow meds w/o difficulty. On room air. Vital signs stable. On MS, not on telemetry; no complains and signs of chest pain, crushing sensation and heaviness. Assisted in ADLs. On pureed diet and thickened liquids- assisted and encouraged in eating and drinking; no nausea, no vomiting and no abdominal pain noted. With suprapubic catheter in place- draining well; output measured and recorded accordingly. Pt turned on his sides. With redness at buttocks, skin intact, anti fungal cream applied as ordered. Falls bundle in place. With SL at L wrist- intact and flushing well. Pt seen and examined by Dr Alvarado this AM, may discharge home with home health- orders in, a/w physician to complete discharge instructions-CM informed. To continue monitoring patient.
[2020-07-10] MEDS ORDERED: AMOXICILLIN875 MG PO (13:45)
[2020-07-10] MEDS ORDERED: ACETAMINOPHEN325 M1 PO (13:45)
[2020-07-10] MEDS ORDERED: ACIDOPHILUS1 EAC4 PO (13:45)
[2020-07-10 14:07] VITALS: BP 122/68
--- NOTE | 2020-07-10 15:31 | NUR ---
CARE TEAM INDICATED THAT PT IS MEDICALLY STABLE TO DC HOME THIS DAY. CM CALLED AND SPOKE WITH PT'S SPOUSE SHE IS AWARE AND AGREEABLE. SHE WANTS TO RESUME [facility] UPON DC. CM FAXED CLINICAL UPDATE AND ORDERS TO [facility]. CM CALLED TO CONFIRM RECIEPT. SPOUSE EXPRESSED CONCERN ABOUT TRANSPORTING PT HOME THIS DAY. CM REQUESTED AND RECIEVED PERMISSION TO [facility]IA [facility]. ARRANGED FOR TRANSPORT BETWEEN [id number]. SPOUSE IS AWARE AND AGREEABLE. NO OTHER CM INTERENTION INDICATED. CASE CLOSED.
--- NOTE | 2020-07-10 18:02 | HC ---
[facility] [place] [address] CONSULTATION Name: MELANIA MANZO Room #: 462-P [facility] IN M.R.#: [id number] Admission: 07/05/20 Attend Phys: Jose Juan Alvarado MD Discharge: 07/10/20 Date of : 39 Report #: [id number] THIS REPORT FOR: cc: JOHN - Family physician unknown JOHN - Family physician unknown Sj Fernandez MD ~ DATE OF SERVICE: 07/06/2020 WOUND CARE CONSULTATION PERSONAL PHYSICIAN: Dr. Alvarado. CHIEF COMPLAINT: Gluteal sacral excoriation. HISTORY OF PRESENT ILLNESS: This is an 84-year-old male with a history of advanced Parkinson's disease and essentially bedbound with significant dementia, who was admitted for increasing confusion. We have been asked to see him for an excoriation and rash in his gluteal region. The patient himself is nonverbal. Nursing staff deny any other associated ulcerations or wounds. PAST MEDICAL HISTORY: Significant for advanced parkinsonism, which is essentially left him bed bound; history of dementia; hypercholesterolemia; previous CVA; previous history of DVTs. CURRENT MEDICATIONS: Multiple, I reviewed the patient's medication list and does include Coumadin. DRUG ALLERGIES: None. SOCIAL HISTORY: The patient has no history of smoking. Lives at home with his family. FAMILY HISTORY AND REVIEW OF SYSTEMS: Unobtainable because of the patient's dementia and altered mental status. PHYSICAL EXAMINATION: VITAL SIGNS: Stable. The patient is afebrile. GENERAL: This is an awake, but not oriented black male who is in no obvious distress. HEENT: Normocephalic, atraumatic. Mucous membranes are somewhat dry. Pupils are round. Sclerae white. NECK: Supple, nontender. LUNGS: Slight diminished breath sounds heard throughout. HEART: Regular, without murmur. [facility] [address] [place] [address] CONSULTATION Name: MELANIA MANZO Room #: 462-P [facility] IN Kathy.#: [id number] Admission: 07/05/20 Attend Phys: Jose Juan Alvarado MD Discharge: 07/10/20 Date of : 39 Report #: [id number] ABDOMEN: Soft, nontender. EXTREMITIES: The patient has limited movement of all extremities and has significant stiffness of extremities. Evaluation of sacrococcygeal region reveals moisture-associated dermatitis with excoriation and fungal rash. There are no signs of any open pressure ulcerations at this time. Bilateral heels are intact. NEUROLOGIC: Cranial nerves 2-12 grossly intact. Motor and sensory grossly intact with significant dementia. LABORATORY VALUES: White count 4.9, hemoglobin 12.7. IMPRESSION: 1. Moisture-associated skin dermatitis of the sacral/gluteal region with fungal rash. 2. Hyperlipidemia. 3. Parkinson's disease with significant debility. 4. Dementia. 5. History of previous cerebrovascular accident. PLAN: We will start antifungal barrier cream to the fungal rash and excoriation twice daily and p.r.n. We will leave this open to air. We will have the patient in a low air loss mattress, having turned every 2 hours. Hospitalist is managing hyperlipidemia as well as the Parkinson disease. Given his significant immobility, once again we will have him with the air loss mattress, having turned every 2 hours. We will have heel protection on at all times. We will attempt to maximize the patient's protein for continued healing. We will continue to follow the patient. We will continue all other current medications. <ELECTRONICALLY SIGNED> By: Sj Fernandez MD 07/10/20 1802 [id number] Sj Fernandez MD /nt
== END 2020-07-10 16:32 | disposition home health service (06) | DRG 871 ==
LOC: ER 13:49 → EROBS 17:04 → 4W 17:04
PROVIDERS: Emergency Medicine; Nurse Practitioner; Specialist; ADMIT Internal Medicine; ATTEND Internal Medicine
DX: A41.9 Sepsis, unspecified organism (principal); G92 Toxic encephalopathy; N39.0 Urinary tract infection, site not specified; Z16.24 Resistance to multiple antibiotics; I69.351 Hemiplegia and hemiparesis following cerebral infarction affecting right dominant side; L89.159 Pressure ulcer of sacral region, unspecified stage; L08.89 Other specified local infections of the skin and subcutaneous tissue; B95.2 Enterococcus as the cause of diseases classified elsewhere; G20 Parkinson's disease; F02.80 Dementia in other diseases classified elsewhere, unspecified severity, without behavioral disturbance, psychotic disturbance, mood disturbance, and anxiety; Z66 Do not resuscitate; E78.5 Hyperlipidemia, unspecified; G47.00 Insomnia, unspecified; Z86.718 Personal history of other venous thrombosis and embolism; Z74.01 Bed confinement status; Z79.899 Other long term (current) drug therapy; Z23 Encounter for immunization
CPT/HCPCS: 10040

== ENCOUNTER 2020-07-16 16:21 | Emergency (ER) | payer OTHER, MEDICARE ==
[~2020-07-16] VITALS: Ht 172.7 cm; Wt 63.5 kg
[~2020-07-16 16:21] MED LIST changes: +ACETAMINOPHEN325 M1 PO; +ACIDOPHILUS1 EAC4 PO; +AMOXICILLIN875 MG PO; +JANTOVEN1 MG PO; +JANTOVEN2 MG PO; +TRAZODONE HCL50 MG PO
[2020-07-16 16:34] VITALS: BP 136/87
== END 2020-07-16 19:30 | disposition home or self-care (01) ==
LOC: ER 16:21
DX: S93.401A Sprain of unspecified ligament of right ankle, initial encounter (principal); E78.5 Hyperlipidemia, unspecified; Z87.891 Personal history of nicotine dependence; Z79.2 Long term (current) use of antibiotics; Z79.899 Other long term (current) drug therapy; X50.1XXA Overexertion from prolonged static or awkward postures, initial encounter; Y93.89 Activity, other specified; Y92.89 Other specified places as the place of occurrence of the external cause; Y99.8 Other external cause status